=== PATIENT | female | born 1990 | race Caucasian/White ===

== ENCOUNTER 2016-11-04 17:48 | Emergency (ER) | payer MEDICAID, OTHER ==
[~2016-11-04] VITALS: Ht 167.6 cm; Wt 54.5 kg
[~2016-11-04 17:48] MED LIST: IBUP600 PO; OXYC1SOL5 PO; PERI8.6T PO; PREN0.01 PO
[2016-11-04 17:50] VITALS: BP 151/76; PULSE 76; RESP 20; TEMP 98.1; O2SAT 97
[2016-11-07] MEDS ORDERED: ZOFR4TAB PO (11:10)
[2016-11-07] MEDS ORDERED: BUPR300T PO (11:10)
[2016-11-07] MEDS ORDERED: OMEP20TA PO (11:10)
[2016-11-07] MEDS ORDERED: MIREIUD I-UTERINE (11:42)
[2016-11-07] MEDS ORDERED: ZANT150T2 PO (12:05)
[2016-11-21] MEDS ORDERED: NICO21DI2 T-DERMAL (11:23)
[2016-11-21] MEDS ORDERED: OMEP20TA PO (11:42)
[2016-11-21] MEDS ORDERED: ZANT150T2 PO (11:42)
[2016-11-21] MEDS ORDERED: ZOFR4TAB PO (11:42)
== END 2016-11-04 21:00 | disposition left against medical advice (07) ==
LOC: NED 17:48
DX: Z53.21 Procedure and treatment not carried out due to patient leaving prior to being seen by health care provider (principal)
CPT/HCPCS: 99281